=== PATIENT | female | born 1995 | race Caucasian/White ===

== ENCOUNTER → 2017-09-05 | Outpatient (CLI) | payer OTHER ==
[~2017-09-05] MED LIST: ACET325T96 PO; ALBU1AER9 INH; IBUP-103 PO; MONT1TAB3 PO
--- NOTE | 2017-09-05 12:38 | DIAGNOSTIC IMAGING REPORT ---
MRI OF THE BRAIN WITHOUT CONTRAST CLINICAL HISTORY: HEADACHES,RETINAL TEAR COMPARISON STUDY: 02/16/2016 FINDINGS: Sagittal T1, axial diffusion, proton density and T2 weighted axial, coronal FLAIR, and axial T1-weighted images were acquired. No intra or extra-axial mass lesions are visualized Axial diffusion-weighted images reveal no evidence of acute or subacute infarction. There is no evidence of ventricular dilatation. Proton density T2-weighted and FLAIR images reveal no significant intraparenchymal signal abnormalities. There are no abnormal flow voids. There is a small left maxillary sinus retention cyst. IMPRESSION: Normal MRI of the brain. Electronically signed by: Santos Lai M.D. 09/05/2017 12:36 PM Dictated Date/Time: 09/05/2017 12:35 PM
== END | disposition home or self-care (01) ==
LOC: C.MRI 11:39
PROVIDERS: ATTEND Family Medicine
DX: H93.19 Tinnitus, unspecified ear (principal); H33.309 Unspecified retinal break, unspecified eye; G44.89 Other headache syndrome

== ENCOUNTER → 2017-10-25 | Outpatient (CLI) | payer OTHER ==
[~2017-10-25] MED LIST changes: +ACET-1693 PO; -ACET325T96 PO
--- NOTE | 2017-10-25 17:21 | DIAGNOSTIC IMAGING REPORT ---
PELVIS/BILATERAL HIP 2 VIEWS CLINICAL HISTORY: THORATIC PAIN, RIGHT HIP AND GROIN PAIN pain COMPARISON STUDY: None FINDINGS: Normal pelvis and hips bilaterally. No evidence for acetabular protrusion. Cortical margins are intact. Sacral foramina are symmetric. Unremarkable sacroiliac joints. IMPRESSION: Normal study The above report was generated using voice recognition software. It may contain grammatical, syntax or spelling errors. Electronically signed by: Wilmer Roa M.D. 10/25/2017 5:20 PM Dictated Date/Time: 10/25/2017 5:19 PM
--- NOTE | 2017-10-25 17:24 | DIAGNOSTIC IMAGING REPORT ---
SCOLIOSIS 2 VIEW (AP LAT) CLINICAL HISTORY: THORATIC PAIN, RIGHT HIP AND GROIN PAIN pain COMPARISON STUDY: None FINDINGS: Mild thoracal lumbar scoliosis. Scoliosis of the thoracic region is 7 degrees. Scoliosis of the thoracolumbar junction is 7 degrees. IMPRESSION: Mild scoliosis of the thoracolumbar spine with angulations of 7 and 7 degrees respectively. The above report was generated using voice recognition software. It may contain grammatical, syntax or spelling errors. Electronically signed by: Wilmer Roa M.D. 10/25/2017 5:23 PM Dictated Date/Time: 10/25/2017 5:21 PM
== END | disposition home or self-care (01) ==
LOC: C.RAD 15:52
PROVIDERS: ATTEND Family Medicine
DX: M25.551 Pain in right hip (principal); R10.30 Lower abdominal pain, unspecified; M54.6 Pain in thoracic spine; M41.9 Scoliosis, unspecified

== ENCOUNTER 2024-04-11 12:43 | Inpatient (IN) ==
[2024-04-12] MEDS ORDERED: CALCIUM CARBONATE 500 MG CHEWABLE TAB PO PRN (08:18)
[2024-04-12] MEDS ORDERED: LIDOCAINE 1% LOCAL 20 ML VIAL INFIL PRN (08:18)
[2024-04-12 08:53] LABS: Hematocrit (blood only) 34.3 % (37.0-47.0); Hemoglobin 11.8 g/dl (12.0-16.0); Mean Corpuscular Hemoglobin 29.6 pg (25.0-34.0); Mean Corpuscular Hgb Conc 34.4 g/dL (32.0-36.0); Mean Corpuscular Volume 86.2 fL (80.0-100.0); Mean Platelet Volume 10.9 fL (9.4-12.4); Platelet Count 175 K/uL (130-400); RDW Coefficient of Variation 12.6 % (11.5-14.5); RDW Standard Deviation 39.5 fL (36.4-46.3); Red Blood Count 3.98 M/uL (4.20-5.40); White Blood Count 9.38 K/ul (4.8-10.8)
[2024-04-12] MEDS: miSOPROStoL 25 MCG TAB PV ONE ×3 (09:22→21:20)
--- NOTE | 2024-04-12 09:55 | History & Physical Report ---
Date of Service April 12, 2024 Assessment & Plan (1) Obesity affecting : (2) Rh negative status during : (3) Supervision of normal first : Plan 28 yo G1 at 41 4/7 wga presents for late term iol VSS - initial bp mild range but pt very nervous, normal repeat Fetus cat 1 Labor - discussed cytotec vs lockwood to start, risks and benefits of each. Cervix very high and difficult to reach due to head position. Pt desires to start w/ cytotec, discussed use. 25mcg vaginal cytotec placed GBS neg epidural prn Admission and Anticipated Discharge Date Admission Date: April 12, 2024 History of Present Illness Chief Complaint: iol Primary Care Provider: Riley Brice MD 28 yo G1 at 41 4/7 wga presents for late term iol. 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 denies hx stis Allergies Allergy/AdvReac Type Severity Reaction Status Date / Time No Known Drug Allergies Allergy Unknown Diarrhea Verified 04/12/24 08:00 dust Allergy Intermediate induces Uncoded 04/10/24 14:31 asthma Home Medications Medication Instructions Recorded Confirmed Type vits 75-iron 28 mg-folic pkg PO 07/10/23 04/10/24 History acid 800 mcg-omega3 440 mg oral pack (One Daily ) albuterol sulfate inhalation PRN 08/17/23 04/10/24 History cholecalciferol (vitamin D3) 50 50 mcg PO DAILY #30 caps 04/08/24 04/10/24 Rx mcg (2,000 unit) capsule Patient History Medical History History of chicken pox Chronic tonsillitis Moderate persistent asthma Anxiety and depression Asthma Surgical History History of wisdom tooth extraction History of tonsillectomy Family History Grandmother (Maternal) Breast cancer Aunt Breast cancer Family/Other Breast cancer Father Heart disease Other Anxiety Depression Diabetes Denies family history of Ovarian cancer Prostate cancer Lung cancer Colorectal cancer Social History (Updated 04/12/24 @ 07:59 by Hellen B Force, RN) Smoking Status: Never smoker Second Hand Exposure: No; Do You Dip or Chew Tobacco: No; Hx Alcohol Use: No Hx Substance Use: No Preferred Language: [place]an Communication Ability: Effective Visual Impairment: Limited Hearing Ability: Normal Acidizer Helper Required: No Beliefs That Will Affect Care: None marital status: marital status details: Nba Rojas (26) [phone] Current Living Situation: Spouse Current Living Situation Comment: lives with spouse, dog current occupational status: employed How many Children do You have: 0 Other Information That Helps Us Care for You: No other: [employer] Feels Safe at Home: Yes Safety Concerns: Feels Safe At This Time Childhood Exposure to Second-Hand Smoke: No Diet: regular caffeine: Yes (1 cup of coffee daily ) during the past year weight has: decreased > 10 lbs Dental Care, Regularly: Yes Physical Activity Frequency: 3-4 Times per Week Seatbelt Use: always Sunscreen Use: No Assistive Devices: None Physical Exam Genitourinary: OB Exam Abdomen: + vertex (confirmed by bsus) Manual OB Exam: + cervical dilation fingertip, + cervical effacement 50% and + station high OB Exam Monitor Tracing: + external FHT monitor used, + external uterine monitor used (none) and + category I (130/mod/+accel/-decel) Results & Data Vital Signs (Past 12 Hours) Vital Signs Temp Pulse Resp BP 04/12/24 09:02 88 129/86 04/12/24 08:01 98.8 F 20 04/12/24 07:54 81 150/90 H Laboratory Results OB Labs: Blood Type A Negative 08/22/23 Antibody Screen POSITIVE A 01/21/24 Hgb 11.4 g/dl (12.0-16.0) L 01/08/24 Hct 33.1 % (37.0-47.0) L 01/08/24 MCV 83.6 fL (80.0-100.0) 08/22/23 Plt Count 225 K/uL (130-400) 08/22/23 Rubella IgG Antibody Immune (Immune) 08/22/23 RPR Nonreactive (Nonreactive) 08/22/23 Hep Bs Antigen NON-REACTIVE (NON-REACTIVE) 08/22/23 Hepatitis C Ab (EIA) NON-REACTIVE (NON-REACTIVE) 08/22/23 HIV (1&2) Ag & Ab Conf NON-REACTIVE (NON-REACTIVE) 08/22/23 Glucose 1 Hr 50 gm 143 mg/dl (70-130) H 01/08/24 OB Optional Labs: Chlamydia trachomatis RNA Not Detected (NotDetected) 08/22/23 Neisseria gonorrhoeae RNA Not Detected (NotDetected) 08/22/23 Thyroid Stimulating Hormone (TSH) 2.369 uIu/ml (0.300-4.500) 07/10/23 Labs Reviewed: passed 28 week 2 hr gtt--[facility] low risk panorama--[facility] HOrizon 14 neg --[facility] gbs neg--[facility] Diagnostic Findings Posterior eccentric plac Coding Level of Care Code None Diagnoses Obesity affecting O99.210 Rh negative status during O26.899; Z67.91 Supervision of normal first Z34.00
--- NOTE | 2024-04-12 15:56 | Labor Progress Brief Note ---
Date of Service April 12, 2024 Subjective occ cramps but not painful Assessment & Plan (1) Obesity affecting : (2) Rh negative status during : (3) Supervision of normal first : Plan 28 yo G1 at 41 4/7 wga presents for late term iol VSS Fetus cat 1 Labor - s/p cytotec x 1, still very difficult to palpate cervix due to being high and behind head, attempted spec exam and very uncomfortable for pt so stopped. Discussed repeat cytotec to hopefully ripen cervix more and make it reachable for lockwood, cytotec placed after pt agreeable GBS neg epidural prn Admission and Anticipated Discharge Date Admission Date: April 12, 2024 Physical Exam Genitourinary: Manual OB Exam: + cervical dilation fingertip, + cervical effacement 50% and + station high OB Exam Monitor Tracing: + external FHT monitor used, + external uterine monitor used (q6) and + category I (120/mod/+accel/-decel) Results & Data Vital Signs (Past 12 Hours) Vital Signs Temp Pulse Resp BP 04/12/24 14:27 98.1 F 68 20 135/86 04/12/24 10:46 99.0 F 72 20 127/84 04/12/24 09:02 88 129/86 04/12/24 08:01 98.8 F 20 04/12/24 07:54 81 150/90 H Coding Level of Care Code None Diagnoses Obesity affecting O99.210 Rh negative status during O26.899; Z67.91 Supervision of normal first Z34.00
--- NOTE | 2024-04-12 21:28 | Labor Progress Brief Note ---
Date of Service April 12, 2024 Subjective occ cramps but not painful Assessment & Plan (1) Obesity affecting : (2) Rh negative status during : (3) Supervision of normal first : Plan 28 yo G1 at 41 4/7 wga presents for late term iol VSS Fetus cat 1 Labor - s/p cytotec x 2, still only fingertip and very high. Will try another cytotec, consider pit to see if will help if not progressed again GBS neg epidural prn Admission and Anticipated Discharge Date Admission Date: April 12, 2024 Physical Exam Genitourinary: Manual OB Exam: + cervical dilation fingertip, + cervical effacement 50% and + station high OB Exam Monitor Tracing: + external FHT monitor used, + external uterine monitor used (q6) and + category I (120/mod/+accel/-decel) Results & Data Vital Signs (Past 12 Hours) Vital Signs Temp Pulse Resp BP 04/12/24 19:16 18 04/12/24 19:16 98.4 F 18 04/12/24 19:15 76 135/83 04/12/24 14:27 98.1 F 68 20 135/86 04/12/24 10:46 99.0 F 72 20 127/84 Coding Level of Care Code None Diagnoses Obesity affecting O99.210 Rh negative status during O26.899; Z67.91 Supervision of normal first Z34.00
[2024-04-13] MEDS: LACTATED RINGER'S 1,000 ML IV PRN (02:08)
[2024-04-13] MEDS: OXYTOCIN 30 UNITS/NSS 30 UNITS/500 ML BAG IV PRN ×2 (02:17→17:40)
--- NOTE | 2024-04-13 02:17 | Labor Progress Brief Note ---
Date of Service April 13, 2024 Subjective ctx more painful Assessment & Plan (1) Obesity affecting : (2) Rh negative status during : (3) Supervision of normal first : Plan 28 yo G1 at 41 4/7 wga presents for late term iol VSS Fetus cat 1 Labor - s/p cytotec x 3, still fingertip and very high/difficult to reach. Discussed trying low dose pit to see if will help bring cervix forward pt agreeable GBS neg epidural prn Admission and Anticipated Discharge Date Admission Date: April 12, 2024 Physical Exam Genitourinary: Manual OB Exam: + cervical dilation fingertip, + cervical effacement 50% and + station high OB Exam Monitor Tracing: + external FHT monitor used, + external uterine monitor used (irreg) and + category I (120/mod/+accel/-decel) Results & Data Vital Signs (Past 12 Hours) Vital Signs Temp Pulse Resp BP 04/12/24 22:17 18 04/12/24 22:17 98.4 F 18 04/12/24 22:16 64 133/80 04/12/24 19:16 18 04/12/24 19:16 98.4 F 18 04/12/24 19:15 76 135/83 04/12/24 14:27 98.1 F 68 20 135/86 Coding Level of Care Code None Diagnoses Obesity affecting O99.210 Rh negative status during O26.899; Z67.91 Supervision of normal first Z34.00
[2024-04-13] MEDS: BUTORPHANOL TARTRATE 2 MG/ML VIAL IV PRN (03:22)
[2024-04-13] MEDS: LIDOCAINE 2%/EPINEPHRINE 1:200,000 20 ML PF ONE (05:35)
[2024-04-13] MEDS: BUPIVACAINE 0.25% PF 30 ML VIAL ONE (05:35)
[2024-04-13] MEDS: fentANYL 2 MCG/ML BUPIVacaine 0.125%-NSS 100ML BAG ONE ×2 (05:36→14:29)
[2024-04-13] MEDS: fentaNYL citrate PF 100 MCG/2 ML VIAL ONE (05:37)
[2024-04-13] MEDS: ePHEDrine sulfate 50 MG/ML AMP ONE (05:37)
[2024-04-13] MEDS: SODIUM CHLORIDE 0.9% PF INJ 10 ML VIAL ONE (05:38)
--- NOTE | 2024-04-13 05:50 | Anesthesiology Consultation ---
Date of Service April 13, 2024 Assessment & Plan Chart Review Chart Review: Acceptable Risk for Labor Epidural Consults Requested none History Height/Weight Height: 5 ft 6 in Weight: 122.47 kg Allergies Allergy/AdvReac Type Severity Reaction Status Date / Time house dust Allergy Intermediate dust Verified 04/13/24 03:17 induces asthma No Known Drug Allergies Allergy Unknown Diarrhea Verified 04/12/24 08:00 Medications Home Medications Medication Instructions Recorded Confirmed Last Taken vits 75-iron 28 mg-folic pkg PO 07/10/23 04/10/24 Unknown acid 800 mcg-omega3 440 mg oral pack (One Daily ) albuterol sulfate inhalation PRN 08/17/23 04/10/24 Unknown cholecalciferol (vitamin D3) 50 50 mcg PO DAILY #30 caps 04/08/24 04/10/24 Unknown mcg (2,000 unit) capsule Active Medications Generic Name Dose Route Start Last Admin Trade Name Freq PRN Reason Stop Dose Admin Butorphanol Tartrate 1 mg 04/13/24 03:14 04/13/24 03:22 Butorphanol Tartrate 2 Mg/Ml Vial IV 1 mg Q1H PRN Administration Pain Oxytocin 30 units in 500 mls @ 5 mls/hr 04/12/24 08:18 04/13/24 05:43 Pitocin 30 Units/Nss IV 04/14/24 08:17 0.3 units/hr .Q24H PRN 5 mls/hr Labor Induction/Augmentation Titration Protocol 0.3 UNITS/HR Lactated Ringer's 1,000 mls @ 125 mls/hr 04/12/24 08:18 04/13/24 04:45 Lr IV 04/14/24 08:17 125 mls/hr .Q8H PRN Administration L&D Protocol Protocol Past Medical History Medical History History of chicken pox Chronic tonsillitis Moderate persistent asthma Anxiety and depression Asthma Past Family History Family History Grandmother (Maternal) Breast cancer Aunt Breast cancer Family/Other Breast cancer Father Heart disease Other Anxiety Depression Diabetes Denies family history of Ovarian cancer Prostate cancer Lung cancer Colorectal cancer Past Surgical History Surgical History History of wisdom tooth extraction History of tonsillectomy Social History Smoking Status: Never smoker Do You Dip or Chew Tobacco: No Hx Alcohol Use: No Hx Substance Use: No Physical Exam Vital Signs Last Vital Signs Temp 36.7 C 04/13/24 02:21 Pulse 92 H 04/13/24 05:49 Resp 18 04/13/24 02:21 BP 138/70 04/13/24 05:49 Pulse Ox 98 04/13/24 05:45 Testing Laboratory Results 04/12/24 08:23 Blood Type A Negative 04/12/24 08:23 Antibody Screen NEGATIVE 04/12/24 08:23
--- NOTE | 2024-04-13 07:53 | Labor Progress Brief Note ---
Date of Service April 13, 2024 Subjective comfortable w/ epidural Assessment & Plan (1) Obesity affecting : (2) Rh negative status during : (3) Supervision of normal first : Plan 28 yo G1 at 41 4/7 wga presents for late term iol VSS Fetus cat 1 Labor - pit was started and pt received epidural. Shortly after, decels were noted so pitocin was shut off and just restarted after recovery. Discussed fol ey bulb placement now that cervix more anterior and pt comfortable, shortly after placement rom was noted and removed so will go up on pitocin. Pt desiring of continuing induction GBS neg epidural in place Admission and Anticipated Discharge Date Admission Date: April 12, 2024 Physical Exam Genitourinary: Manual OB Exam: + cervical dilation 1 cm, + cervical effacement 50% and + station -2 OB Exam Monitor Tracing: + external FHT monitor used, + external uterine monitor used (irreg) and + category I (140/mod/+accel/-decel) Sheridan bulb placed and shortly after amniotic fluid noted coming from tubing so removed Results & Data Vital Signs (Past 12 Hours) Vital Signs Temp Pulse Resp BP Pulse Ox 04/13/24 07:48 71 108/64 04/13/24 07:45 71 97 04/13/24 07:40 73 98 04/13/24 07:35 101 H 98 04/13/24 07:30 87 91 04/13/24 07:25 64 20 104/57 L 98 04/13/24 07:20 100 H 98 04/13/24 07:15 104 H 98 04/13/24 07:13 88 94 04/13/24 07:10 82 98 04/13/24 07:08 98.1 F 66 20 109/61 04/13/24 07:05 90 99 04/13/24 07:00 87 99 04/13/24 06:58 71 100/55 L 04/13/24 06:55 78 100 04/13/24 06:53 65 98/55 L 04/13/24 06:50 66 100 04/13/24 06:48 97.9 F 71 18 98/50 L 04/13/24 06:45 70 100 04/13/24 06:43 70 91/52 L 92 04/13/24 06:40 68 99 04/13/24 06:38 66 103/47 L 04/13/24 06:35 68 99 04/13/24 06:33 71 109/53 L 04/13/24 06:31 18 04/13/24 06:31 18 04/13/24 06:30 79 98 04/13/24 06:28 90 04/13/24 06:28 74 04/13/24 06:28 67 98/53 L 04/13/24 06:25 68 96/55 L 100 04/13/24 06:23 71 92 04/13/24 06:20 64 98 04/13/24 06:18 88 92 04/13/24 06:15 89 99 04/13/24 06:14 93 H 147/86 H 04/13/24 06:10 87 98 04/13/24 06:08 74 133/64 04/13/24 06:05 107 H 97 04/13/24 06:03 87 130/71 04/13/24 06:00 85 98 04/13/24 05:58 81 129/71 04/13/24 05:55 81 98 04/13/24 05:53 81 131/72 04/13/24 05:50 91 H 97 04/13/24 05:49 92 H 138/70 04/13/24 05:45 82 98 04/13/24 05:42 82 131/76 04/13/24 05:40 74 128/73 94 04/13/24 05:38 89 134/81 04/13/24 05:36 83 134/79 04/13/24 05:35 77 99 04/13/24 05:32 77 93 04/13/24 05:30 89 04/13/24 05:30 95 H 131/72 97 04/13/24 05:26 100 H 92 04/13/24 05:25 106 H 22 97 04/13/24 05:20 90 100 04/13/24 05:15 105 H 99 04/13/24 05:10 76 98 04/13/24 05:07 87 94 04/13/24 05:05 82 99 04/13/24 05:00 90 91 04/13/24 04:59 66 91 04/13/24 04:55 82 100 04/13/24 04:41 88 98 04/13/24 04:36 82 99 04/13/24 04:31 78 98 04/13/24 04:28 68 94 04/13/24 04:26 98 H 95 04/13/24 04:23 93 H 146/98 H 04/13/24 04:21 101 H 95 04/13/24 04:20 94 H 94 04/13/24 04:16 77 98 04/13/24 03:29 82 144/92 H 04/13/24 03:24 93 H 140/100 04/13/24 02:21 18 04/13/24 02:21 98.1 F 18 04/13/24 02:21 97.0 F L 74 18 142/89 H 04/12/24 22:17 18 04/12/24 22:17 98.4 F 18 04/12/24 22:16 64 133/80 Coding Level of Care Code None Diagnoses Obesity affecting O99.210 Rh negative status during O26.899; Z67.91 Supervision of normal first Z34.00
--- NOTE | 2024-04-13 12:34 | Communication Note ---
Date of Service: April 13, 2024 Late entry due to pt care. IUPC placed at 1022 at nursing request as patient was repositioned and unable to see ctx to continue going on pit. Still 1cm at that time so will continue to augment per iupc
[2024-04-13] MEDS ORDERED: LIDOCAINE 2% MPF LOCAL 5 ML VIAL EPI PRN (14:23)
[2024-04-13] MEDS ORDERED: ePHEDrine sulfate 50 MG/ML AMP IV PRN (14:23)
[2024-04-13] MEDS ORDERED: fentaNYL citrate PF 100 MCG/2 ML VIAL EPI PRN (14:23)
[2024-04-13] MEDS ORDERED: NALBUPHINE HCL INJ 10 MG/ML AMP IV PRN (14:23)
[2024-04-13] MEDS ORDERED: fentANYL 2 MCG/ML BUPIVacaine 0.125%-NSS 100ML BAG EPI PRN (14:23)
[2024-04-13] MEDS ORDERED: SODIUM CHLORIDE 0.9% PF INJ 10 ML VIAL EPI PRN (14:23)
[2024-04-13] MEDS ORDERED: ROPIVACAINE 0.5% PF 5 MG/ML 20 ML VIAL EPI PRN (14:23)
[2024-04-13] MEDS ORDERED: NALOXONE HCL 0.4 MG/1 ML VIAL/CARP IV PRN (14:23)
[2024-04-13] MEDS ORDERED: ONDANSETRON INJ 2 MG/ML 2 ML VIAL IV PRN (14:23)
[2024-04-13] MEDS ORDERED: BUPIVACAINE 0.25% PF 30 ML VIAL EPI PRN (14:23)
[2024-04-13] MEDS ORDERED: diphenhydrAMINE 50 MG/ML VIAL IV PRN (14:23)
[2024-04-13] MEDS ORDERED: NALOXONE HCL 1 MG in SODIUM CHLORIDE 0.9% 1,000 ML IV PRN (14:23)
--- NOTE | 2024-04-13 14:38 | Labor Progress Brief Note ---
Date of Service April 13, 2024 Subjective comfortable w/ epidural Assessment & Plan (1) Obesity affecting : (2) Rh negative status during : (3) Supervision of normal first : Plan 28 yo G1 at 41 4/7 wga presents for late term iol VSS Fetus cat 1 Labor - iupc was placed earlier to help guide pit, currently at 17 and progress noted. MVUs good, pt feels good after nap. Continue induction GBS neg epidural in place Admission and Anticipated Discharge Date Admission Date: April 12, 2024 Physical Exam Genitourinary: Manual OB Exam: + cervical dilation 3 cm, + cervical effacement 70% and + station -2 OB Exam Monitor Tracing: + external FHT monitor used, + intra-uterine pressure catheter used (q4-5, mvus adequate) and + category I (120/mod/+accel/-decel) Results & Data Vital Signs (Past 12 Hours) Vital Signs Temp Pulse Resp BP Pulse Ox 04/13/24 14:35 81 99 04/13/24 14:30 71 99 04/13/24 14:25 69 99 04/13/24 14:20 74 99 04/13/24 14:18 70 129/74 04/13/24 14:15 86 99 04/13/24 14:10 75 99 04/13/24 14:05 82 99 04/13/24 14:00 77 98 04/13/24 13:55 91 H 98 04/13/24 13:50 76 99 04/13/24 13:48 76 124/76 04/13/24 13:45 83 99 04/13/24 13:40 84 100 04/13/24 13:35 101 H 99 04/13/24 13:30 78 99 04/13/24 13:25 79 98 04/13/24 13:20 84 99 04/13/24 13:18 83 130/78 04/13/24 13:15 88 98 04/13/24 13:10 70 99 04/13/24 13:05 85 99 04/13/24 13:00 76 98 04/13/24 12:55 70 99 04/13/24 12:50 87 100 04/13/24 12:49 98.8 F 85 18 126/74 04/13/24 12:45 76 99 04/13/24 12:40 90 97 04/13/24 12:35 80 98 04/13/24 12:30 84 98 04/13/24 12:25 73 98 04/13/24 12:20 90 100 04/13/24 12:18 83 125/77 04/13/24 12:15 91 H 99 04/13/24 12:10 74 99 04/13/24 12:05 80 99 04/13/24 12:00 84 97 04/13/24 11:55 88 100 04/13/24 11:50 86 99 04/13/24 11:48 85 130/74 04/13/24 11:45 91 H 98 04/13/24 11:40 88 100 04/13/24 11:35 82 98 04/13/24 11:30 75 97 04/13/24 11:25 97 H 98 04/13/24 11:20 76 98 04/13/24 11:19 86 112/65 04/13/24 11:15 74 97 04/13/24 11:10 72 96 04/13/24 11:05 73 96 04/13/24 11:00 72 96 04/13/24 10:55 98.4 F 68 20 97 04/13/24 10:50 73 112/65 97 04/13/24 10:45 78 97 04/13/24 10:40 80 100 04/13/24 10:35 73 97 04/13/24 10:30 74 98 04/13/24 10:25 82 100 04/13/24 10:20 76 99 04/13/24 10:18 72 130/81 04/13/24 10:15 75 100 04/13/24 10:13 88 129/78 04/13/24 10:10 87 100 04/13/24 10:05 91 H 99 04/13/24 10:00 85 97 04/13/24 09:55 90 99 04/13/24 09:50 82 99 04/13/24 09:48 81 120/79 04/13/24 09:45 87 100 04/13/24 09:40 72 100 04/13/24 09:35 101 H 97 04/13/24 09:34 92 H 91 04/13/24 09:30 76 100 04/13/24 09:25 75 97 04/13/24 09:20 77 99 04/13/24 09:19 74 118/71 04/13/24 09:15 78 99 04/13/24 09:13 18 04/13/24 09:13 98.1 F 18 04/13/24 09:10 93 H 100 04/13/24 09:07 99 H 94 04/13/24 09:05 78 98 04/13/24 09:00 76 99 04/13/24 08:55 71 99 04/13/24 08:50 81 99 04/13/24 08:48 75 20 118/69 04/13/24 08:45 74 99 04/13/24 08:40 79 99 04/13/24 08:35 67 98 04/13/24 08:30 64 99 04/13/24 08:25 69 99 04/13/24 08:20 20 04/13/24 08:20 20 04/13/24 08:20 75 04/13/24 08:20 74 113/70 99 04/13/24 08:15 72 98 04/13/24 08:10 72 99 04/13/24 08:05 73 99 04/13/24 08:00 67 98 04/13/24 07:55 65 98 04/13/24 07:50 67 97 04/13/24 07:48 71 108/64 04/13/24 07:45 71 97 04/13/24 07:40 73 98 04/13/24 07:35 101 H 98 04/13/24 07:30 87 91 04/13/24 07:25 64 20 104/57 L 98 04/13/24 07:20 100 H 98 04/13/24 07:15 104 H 98 04/13/24 07:13 88 94 04/13/24 07:10 82 98 04/13/24 07:08 98.1 F 66 20 109/61 04/13/24 07:05 90 99 04/13/24 07:00 87 99 04/13/24 06:58 71 100/55 L 04/13/24 06:55 78 100 04/13/24 06:53 65 98/55 L 04/13/24 06:50 66 100 04/13/24 06:48 97.9 F 71 18 98/50 L 04/13/24 06:45 70 100 04/13/24 06:43 70 91/52 L 92 04/13/24 06:40 68 99 04/13/24 06:38 66 103/47 L 04/13/24 06:35 68 99 04/13/24 06:33 71 109/53 L 04/13/24 06:31 18 04/13/24 06:31 18 04/13/24 06:30 79 98 04/13/24 06:28 90 04/13/24 06:28 74 04/13/24 06:28 67 98/53 L 04/13/24 06:25 68 96/55 L 100 04/13/24 06:23 71 92 04/13/24 06:20 64 98 04/13/24 06:18 88 92 04/13/24 06:15 89 99 04/13/24 06:14 93 H 147/86 H 04/13/24 06:10 87 98 04/13/24 06:08 74 133/64 04/13/24 06:05 107 H 97 04/13/24 06:03 87 130/71 04/13/24 06:00 85 98 04/13/24 05:58 81 129/71 04/13/24 05:55 81 98 04/13/24 05:53 81 131/72 04/13/24 05:50 91 H 97 04/13/24 05:49 92 H 138/70 04/13/24 05:45 82 98 04/13/24 05:42 82 131/76 04/13/24 05:40 74 128/73 94 04/13/24 05:38 89 134/81 04/13/24 05:36 83 134/79 04/13/24 05:35 77 99 04/13/24 05:32 77 93 04/13/24 05:30 89 04/13/24 05:30 95 H 131/72 97 04/13/24 05:26 100 H 92 04/13/24 05:25 106 H 22 97 04/13/24 05:20 90 100 04/13/24 05:15 105 H 99 04/13/24 05:10 76 98 04/13/24 05:07 87 94 04/13/24 05:05 82 99 04/13/24 05:00 90 91 04/13/24 04:59 66 91 04/13/24 04:55 82 100 04/13/24 04:41 88 98 04/13/24 04:36 82 99 04/13/24 04:31 78 98 04/13/24 04:28 68 94 04/13/24 04:26 98 H 95 04/13/24 04:23 93 H 146/98 H 04/13/24 04:21 101 H 95 04/13/24 04:20 94 H 94 04/13/24 04:16 77 98 04/13/24 03:29 82 144/92 H 04/13/24 03:24 93 H 140/100 Coding Level of Care Code None Diagnoses Obesity affecting O99.210 Rh negative status during O26.899; Z67.91 Supervision of normal first Z34.00
--- NOTE | 2024-04-13 17:50 | Delivery Summary ---
Vaginal Delivery Summary Date of Service April 13, 2024 Vaginal Delivery Summary (bilateral sulcal) PREOPERATIVE DIAGNOSIS: 1. Single intrauterine at 41 5/7 wga 2. Late term induction of labor POSTOPERATIVE DIAGNOSIS: 1. Single intrauterine at 41 5/7 wga 2. Late term induction of labor 3. Delivered PROCEDURE: 1. Normal spontaneous vaginal delivery. SURGEON: Ronna Valencia MD ANESTHESIA: Epidural. QUANTITATIVE BLOOD LOSS: 543 mL (majority of QBL from lacerations) FLUIDS: Continuous LR. URINE OUTPUT: None. COMPLICATIONS: None. CONDITION: Stable. INDICATIONS: 28 yo G1 at 41 5/7 presented one day ago for late term induction of labor. Cervix was unable to be reached for lockwood bulb placement and so induction was begun with cytotec x 3. Pitocin was then started and epidural was given for pain control. IUPC placed for aid in pitocin titration. She progressed to complete and desired to push FINDINGS: A viable female , weight pending with Apgars of 8 and 9 at 1 and 5 minutes respectively. SPECIMEN: Cord blood OPERATIVE REPORT: The patient progressed to 10 cm, 100% effaced and +2 station, pushed over intact perineum with anesthesia to deliver a viable female infant, weight and Apgars as above. Head of delivered in CHING position. No nuchal cord was present. Body and shoulders were delivered without difficulty. was delivered to maternal abdomen and nursing staff. Delayed cord clamping was performed for 60 seconds. Cord was clamped and cut. Cord blood was obtained. Placenta delivered spontaneously intact with 3-vessel cord. IV oxytocin and fundal massage were given for excellent hemostasis. Vagina, cervix, perineum, and placenta were inspected. Bilateral sulcal lacerations were repaired using 3- 0 vicryl. There was an area of continued ooze from suture line and so pressure and bari were applied. There was then excellent hemostasis. Sponge and needle counts correct x2. No sponges were left behind. Mother and stable in immediate period. [facility] [place] Charge Vaginal Delivery Codes: 52003 global code for the antepartum, delivery, and post- Delivery Type Details: (bilateral sulcal)
[2024-04-13] MEDS ORDERED: HYDROCORTISONE ACETATE 25 MG SUPP PR PRN (17:54)
[2024-04-13] MEDS ORDERED: bisacodyL 10 MG SUPP PR PRN (17:54)
[2024-04-13] MEDS ORDERED: OXYTOCIN 30 UNITS/NSS 30 UNITS/500 ML BAG IV PRN (17:54)
--- NOTE | 2024-04-13 17:56 | Anesthesia Procedure Note ---
Date of Service April 13, 2024 Anesthesia Post Epidural Note Vital Signs Vital Signs: Temp Pulse Resp BP Pulse Ox 98.1 F 102 H 20 138/65 94 04/13/24 16:47 04/13/24 17:49 04/13/24 16:47 04/13/24 17:49 04/13/24 17:10 Pain Intensity Abdomen: Pain Intensity: 0 Notes Mental Status: alert / awake / arousable and participated in evaluation Nausea / Vomiting: adequately controlled Pain: adequately controlled Airway Patency, RR, SpO2: stable & adequate BP & HR: stable & adequate Hydration State: stable & adequate Neuraxial Anesthesia: was administered and sensory block is resolving Anesthetic Complications: no major complications apparent and Pt Satisfied with anesthetic care Epidural: Removed without complications and With tip intact
[2024-04-13] MEDS: fentaNYL citrate PF 100 MCG/2 ML VIAL EPI STA (18:55)
[2024-04-13] MEDS: DIPHTHER/TETAN/PERTUS Vaccine (Tdap, Adol/Adult) 0.5mL IM ONE (18:55)
[2024-04-13] MEDS: LIDOCAINE 2%/EPINEPHRINE 1:200,000 20 ML PF EPI STA (18:55)
[2024-04-13] MEDS: SODIUM CHLORIDE 0.9% PF INJ 10 ML VIAL EPI STA (18:55)
[2024-04-13] MEDS: BUPIVACAINE 0.25% PF 30 ML VIAL EPI STA (18:56)
[2024-04-13] MEDS: IBUPROFEN 600 MG TAB PO PRN (19:26)
[2024-04-13] MEDS: BENZOCAINE 20% SPRY 85 APPLN/85 GM CAN EXT PRN (20:50)
[2024-04-13] MEDS: DOCUSATE SODIUM 100 MG CAP PO SCH (21:11)
--- NOTE | 2024-04-14 05:36 | Obstetrical Progress Note ---
Date of Service April 14, 2024 Assessment & Plan (1) Encounter for care and examination after delivery: (2) Rh negative status during : (3) Obesity affecting : (4) Urinary retention: Plan Pt is 28 yo post- day 1 s/p at 39w2d. complicated by obesity and Rh negative. Rhogam was given 01-21-24. Pt has been unable to void without assist from straight cath. Encourage ambulation and breast feeding Motrin or Tylenol for pain control Monitor vitals and Hgb Urinary retention requiring Lockwood catheter. Upon discharge, pt to follow up with Dr. Valencia in 6 weeks Admission and Anticipated Discharge Date Admission Date: April 12, 2024 Supervising Physician Co-Signing Physician Notes Resident Physician Supervision Note: I interviewed and examined the patient. Discussed with Dr. Clark and agree with findings and plan as documented in the note. Any exceptions or clarifications are listed here: Feeling well. Had to be straight cath x 2 overnight and now dtv again, will need lockwood if still unable to void. Continue routine care otherwise Documented By: Ronna Valencia MD Subjective Pt is 28 yo post- day 1 s/p at 39w2d. complicated by obesity and Rh negative. Ambulation:In room Voiding:Has been unable to void independently since delivery Passing gas: yes BM: no Diet tolerance:regular diet Lochia:bloody, no clots Feeding type: breast Current pain level: 3-4 /10 improved with ibuprofen Resting comfortably this morning in NAD. Denies BERNARD, CP, SOB, N/V/D, LE pain/swelling. Review of Systems Review of Systems: As per HPI Physical Exam Constitutional: WD/WN, vitals as above Respiratory: normal respiratory effort, lungs clear to auscultation Cardiovascular: RRR, no murmur, no edema Gastrointestinal (Abdomen): normal bowel sounds, soft, nontender, no hepatosplenomegaly Uterine fundus firm and at level of umbilicus Neurologic: PERRL, EOMI, accommodation nl, no face palsy, no dysarthria Moving all 4 extremities on command Psychiatric: A+Ox3, euthymic affect Results & Data Vital Signs (Past 12 Hours) Vital Signs Temp Pulse Pulse Resp BP BP Pulse Ox 04/14/24 02:53 36.5 C 70 18 122/81 99 04/13/24 23:31 36.6 C 77 18 108/72 98 04/13/24 20:15 36.6 C 101 H 18 123/83 100 04/13/24 19:49 113 H 126/71 04/13/24 19:18 91 H 124/76 04/13/24 19:10 18 04/13/24 19:10 36.6 C 18 04/13/24 18:48 117 H 125/66 04/13/24 18:25 20 04/13/24 18:25 109 H 117/64 04/13/24 18:10 20 04/13/24 17:49 102 H 138/65 O2 Del Method 04/14/24 02:53 Room Air 04/13/24 23:31 Room Air 04/13/24 20:15 Room Air 04/13/24 19:49 04/13/24 19:18 04/13/24 19:10 04/13/24 19:10 04/13/24 18:48 04/13/24 18:25 04/13/24 18:25 04/13/24 18:10 04/13/24 17:49 Resident Activity Tracking Resident Involvement: Resident Care Provided Care Provided: Adult Hospital Medicine
[2024-04-14] MEDS: PRENATAL VITAMIN 1 TAB PO SCH (10:06)
[2024-04-14] MEDS: FERROUS SULFATE 325 MG TAB PO SCH (10:07)
[2024-04-14] MEDS: LIDOCAINE 2% JELLY 5 ML TUBE EXT ONE (14:12)
[2024-04-14] MEDS: ACETAMINOPHEN 325 MG TAB PO PRN (16:10)
[2024-04-14] MEDS: bisacodyL 5 MG TABEC PO SCH (20:45)
[2024-04-15 00:54] VITALS: RESP 18; TEMP 97.7
--- NOTE | 2024-04-15 05:47 | Obstetrical Progress Note ---
Date of Service April 15, 2024 Assessment & Plan (1) Encounter for care and examination after delivery: (2) Rh negative status during : (3) Obesity affecting : (4) Urinary retention: Plan Pt is 28 yo post- day 2 s/p at 39w2d. complicated by obesity and Rh negative. Rhogam was given 24. Pt has been unable to void without assist from straight cath. Encourage ambulation and breast feeding Motrin or Tylenol for pain control Monitor vitals Voiding trial with removal of Lockwood catheter. If unable to void independently, pt with D/C with Lockwood and return to OB clinic in 2 days. If voiding trial is successful, pt to follow up with Dr. Valencia in 6 weeks Discharge home today Admission and Anticipated Discharge Date Admission Date: April 12, 2024 Supervising Physician Co-Signing Physician Notes Resident Physician Supervision Note: I interviewed and examined the patient. Discussed with the resident doctor and agree with findings and plan as documented in the note. Any exceptions or clarifications are listed here: TOV this AM. If unable to void by 1pm, place lockwood/leg bag and will have outpatient TOV in a few days. Documented By: Lucy Larios MD, FACOG Subjective Pt is 28 yo post- day 2 s/p at 39w2d. complicated by obesity and Rh negative. Ambulation:In room Voiding:Has been unable to void independently since delivery, continues with Lockwood catheter Passing gas: yes BM: small BM on 04/13 Diet tolerance:regular diet Lochia:bloody, small clots Feeding type: breast Current pain level: 3-5 /10 improved with ibuprofen and tylenol Resting comfortably this morning in NAD. Denies BERNARD, CP, SOB, N/V/D, LE pain/swelling. Review of Systems Review of Systems: As per HPI Physical Exam Constitutional: WD/WN, vitals as above Respiratory: normal respiratory effort, lungs clear to auscultation Cardiovascular: RRR, no murmur, no edema Gastrointestinal (Abdomen): normal bowel sounds, soft, nontender, no hepatosplenomegaly Uterine fundus firm and 1-2 cm below umbilicus Neurologic: PERRL, EOMI, accommodation nl, no face palsy, no dysarthria Psychiatric: A+Ox3, euthymic affect Results & Data Vital Signs (Past 12 Hours) Vital Signs Temp Pulse Resp BP Pulse Ox O2 Del Method 04/15/24 00:05 36.5 C 82 18 129/80 99 Room Air Resident Activity Tracking Resident Involvement: Resident Care Provided Care Provided: Adult Hospital Medicine
[2024-04-15 08:21] VITALS: BP 123/82; PULSE 80; O2SAT 97
== END 2024-04-15 18:48 | disposition home or self-care (01) | DRG 806 ==
LOC: 4S1 04-12 07:37 → 4E2 04-13 20:17

== ENCOUNTER 2024-04-18 04:31 | Inpatient (IN) ==
[2024-04-18] MEDS: KETOROLAC TROMETHAMINE 15 MG/ML VIAL IV ONE (05:40)
[2024-04-18] MEDS: diphenhydrAMINE 50 MG/ML VIAL IV STA (05:41)
[2024-04-18] MEDS: SODIUM CHLORIDE 0.9% 500 ML IV ONE (05:42)
[2024-04-18] MEDS: PROCHLORPERAZINE 1 ML IV ONE (05:42)
[2024-04-18] MEDS: MAGNESIUM SULFATE / D5W 1 GM/100 ML BAG IV ONE (06:01)
[2024-04-18 06:08] LABS: Albumin Globulin Ratio 1.4 (0.9-2); Albumin Level 3.3 gm/dl (3.4-5.0); BUN Creatinine Ratio 11.5 (10-20); Bilirubin,Total 0.3 mg/dl (0.2-1.0); Calcium 8.3 mg/dl (8.6-10.3); Creatinine Clr Calc Pharmacy 180.9 ml/min; Est GFR (Non-African American) 121.7 ml/min; Globulin 2.4 gm/dl (2.5-4.0); Magnesium 1.9 mg/dl (1.7-2.4); Potassium 3.8 mmol/L (3.5-5.1); Total Protein 5.7 gm/dl (6.0-8.3); Uric Acid 4.7 mg/dl (2.6-7.2)
[2024-04-18] MEDS: SODIUM CHLORIDE 0.9% 1,000 ML IV SCH (06:09)
[2024-04-18 06:11] LABS: Appearance Urine Clear (Clear); Bacteria Urine Automated 1+ (None Seen); Bilirubin Urine Negative (Negative); Blood Urine 3+ (Negative); Cast Urine Automated 0-2 /lpf (0-2); Color Urine Yellow; Epithelial Cell Urine Auto 0-2 /hpf (0-2); Glucose Urine UA Negative (Negative); Ketones Urine Negative (Negative); Leukocyte Esterase Urine 2+ (Negative); Nitrite Urine Negative (Negative); Protein Urine Negative (Negative); RBC Urine Automated 0-2 /hpf (0-2); Specific Gravity Urine 1.004 (1.000-1.030); Urobilinogen Urine Negative (Negative); pH Urine 6.5 (4.5-7.5)
[2024-04-18 06:15] LABS: Troponin I High Sensitivity 3.3 pg/ml (0-14)
[2024-04-18 06:23] LABS: Thyroid Stimulating Hormone 4.129 uIu/ml (0.300-4.500)
--- NOTE | 2024-04-18 06:34 | Emergency Department Note ---
Impression & Plan Headache, hypertension ED Provider Note NAME: NAVIN MEDRANO AGE: 28 SEX: Female INFORMANT: Patient ED PROVIDER(S): Yeison Veloz MD CHIEF COMPLAINT: Headache PLAN: Disposition: Admitted Outpatient prescription management: none Referral: None MEDICAL DECISION MAKING: Patient presented because of headache complaints. She was hypertensive which was unusual for her by EMR review. Patient also noticed increased swelling. She had a nonfocal neurologic examination. Head CT imaging did not reveal any acute findings on my evaluation. Radiology read pending. Her CBC and chemistry panels were unremarkable. Patient has no proteinuria. Patient was hydrated. She was given IV Toradol, magnesium, Compazine, and Benadryl. She has had history of migraines but notes a positional component to this episode. She did have an epidural for her delivery. On reassessment patient's vital signs improved and hypertension resolved. Unfortunately hypertension came back. Patient still had some positional component to her headache. Consultation was made with [facility]. Discussed the case with Dr. Pascal. Given the patient's return of her hypertension up to 140/102 we discussed initiation of a magnesium infusion protocol. This was ordered by me. The patient will be admitted to the OB service. She stated that OB will consult with anesthesia for evaluation due to the possible positional component of the headache. Care/management discussed with: [facility] on-call Level of care consideration(s): After review of the information above and other included data, I feel the patient requires escalation of care to admission Triage Nursing notes: reviewed and agree them. Vital Signs: reviewed and remarkable for hypertension Additional History obtained from: Patient significant other. He does note the patient has had visible increased edema although it has been fluctuating. Chronic Medical/Social Conditions affecting care: none Prior/ Outside/ External records reviewed: none Differential Diagnosis: -induced hypertension, hypertension, preeclampsia, eclampsia, spinal headache, migraine headache, meningitis, sinusitis, CO exposure, ICH, SAH, infection, tumor, headache, sinus thrombosis, arterial dissection, as well as other pathologies. Diagnostics, independently interpreted by me: ECG: Twelve-lead ECG reveals a normal sinus rhythm at [address] elevation or depression. No PACs or PVCs. Cardiac Monitoring: Cardiac monitoring ordered by me: The patient was placed on continuous cardiac monitoring and observed. It revealed a normal sinus rhythm at 68 beats per minute without ectopy or evidence of dysrhythmia. Medical decision rules: none Imaging studies: Chest x-ray. Findings: A chest x-ray was performed and revealed no pneumothorax, effusion, infiltrate, pulmonary edema, free air under the diaphragm, or wide mediastinum. Impression: No acute disease. Head CT: A noncontrast CT scan of the head was performed and was negative for tumor, fracture, intracranial hemorrhage, or other acute pathology. HPI: 28 year old Female arrives for evaluation of headache. This started over the last several days and is worsening. The patient also notes the following associated symptoms, peripheral edema. The patient has used Tylenol for relieving factors. Current pain is rated as 4/10. Patient called on-call [facility] and was directed to the ER for evaluation. Patient notes no history of hypertension. She does have a history of migraines but this feels different. She notes that the pain is more pronounced when standing up and does feel better but does not go away with laying down. Pt denies LOC, fevers, chills, diaphoresis, visual changes, neck pain, chest pain, breathing difficulties, nausea, vomiting, abdominal pain, back pain, melena, hematochezia, urinary symptoms, numbness, weakness, lymphadenopathy, rash, or other complaints.. PAST MEDICAL HISTORY: See Below, Rh-, migraine PAST SURGICAL HISTORY: See Below, SOCIAL HISTORY: See Below, non-smoker HOME MEDICATIONS: See Below ALLERGIES: See Below VITALS: See Below PHYSICAL EXAMINATION: GENERAL: Awake, alert, well appearing, no distress HENT: Normocephalic, atraumatic. TM's normal. Oropharynx unremarkable. EYES: PERRL. EOMI. Normal conjunctiva. Sclera non-icteric. NECK: Supple. Normal inspection. Non-tender. No nuchal rigidity. FROM. No bruit. RESPIRATORY: Breath sounds equal. No wheezes. No rhonchi. Normal respiratory effort. CARDIAC: Normal rate. Regular rhythm. No murmurs. No rubs. No JVD. GI: Soft, non distended. No tenderness to palpation. No rebound or guarding. No masses. RECTAL: Deferred. MUSCULOSKELETAL: Unremarkable. 1+ edema. No discoloration. Gross motor strength symmetric. NEURO: Cranial nerves 2-12 grossly intact. Normal sensorium. No sensory or motor deficits noted. Speech normal. No pronator drift. Normal rapid alternating movements. Gait normal. Negative rhomberg. SKIN: No rash or jaundice noted. LYMPH: No adenopathy. PROCEDURES: none CRITICAL CARE: none OBSERVATION NOTE: none Past Med/Surg History Problem List (Updated 04/18/24 @ 06:34 by Yeison Veloz MD) hypertension (Acute) Headache (Acute) Urinary retention Encounter for care and examination after delivery Sinusitis Intrauterine related hip pain in second trimester, antepartum Rh negative status during Obesity affecting Choroidal neovascularization Supervision of normal first Encounter for general adult medical examination without abnormal findings Migraine headache without aura Vitamin D deficiency Fatigue Synovitis Allergic rhinitis Asthma Head injury (Acute) Central serous retinopathy (Acute) Medical History History of chicken pox Chronic tonsillitis Moderate persistent asthma Anxiety and depression Asthma Surgical History History of wisdom tooth extraction History of tonsillectomy Family History Grandmother (Maternal) Breast cancer Aunt Breast cancer Family/Other Breast cancer Father Heart disease Other Anxiety Depression Diabetes Denies family history of Ovarian cancer Prostate cancer Lung cancer Colorectal cancer Social History (Updated 04/12/24 @ 07:59 by Hellen Grant RN) Smoking Status: Never smoker Second Hand Exposure: No; Do You Dip or Chew Tobacco: No; Hx Alcohol Use: No Hx Substance Use: No Preferred Language: Slovak Communication Ability: Effective Visual Impairment: Limited Hearing Ability: Normal It Risk Advisor Required: No Beliefs That Will Affect Care: None marital status: marital status details: Nba Medrano (26) [phone] Current Living Situation: Spouse Current Living Situation Comment: lives with spouse, dog current occupational status: employed How many Children do You have: 0 other: [employer] Feels Safe at Home: Yes Childhood Exposure to Second-Hand Smoke: No Diet: regular caffeine: Yes (1 cup of coffee daily ) during the past year weight has: decreased > 10 lbs Dental Care, Regularly: Yes Physical Activity Frequency: 3-4 Times per Week Seatbelt Use: always Sunscreen Use: No Assistive Devices: None Allergies Allergies Allergy/AdvReac Type Severity Reaction Status Date / Time house dust Allergy Intermediate dust Verified 04/13/24 03:17 induces asthma No Known Drug Allergies Allergy Unknown Diarrhea Verified 04/12/24 08:00 Home Meds Home Medications Medication Instructions Recorded Confirmed vits 75-iron 28 mg-folic See Protocol PO DAILY 07/10/23 04/13/24 acid 800 mcg-omega3 440 mg oral pack (One Daily ) albuterol 90 mcg/actuation aerosol mcg inhalation 04/13/24 inhaler Previous Rx's Medication Instructions Recorded cholecalciferol (vitamin D3) 50 50 mcg PO DAILY #30 caps 04/08/24 mcg (2,000 unit) capsule Results & Data (ED) Vital Signs Vital Signs - 24 hr 04/18/24 04:35 04/18/24 04:54 04/18/24 04:54 Temperature 36.6 C Temperature Source Oral Pulse Rate 82 Pulse Rate [Apical] 74 Pulse Rhythm [Apical] Pulse Strength [Apical] Respiratory Rate 18 16 Respiratory Effort / Characteristics Non-Labored Spontaneous Respiratory Depth Normal Respiratory Pattern Blood Pressure 159/96 H Blood Pressure [Right Arm] 144/86 H Blood Pressure Mean 117 Blood Pressure Mean [Right Arm] 105 Pulse Oximetry 99 99 96 Oxygen Delivery Method Room Air Room Air Sepsis Recent Fever Within 48 Hours No Sepsis New/Unexplained Change in Mental Status No Sepsis Action Taken by Nursing No Action Required 04/18/24 04:57 04/18/24 06:00 04/18/24 07:58 Temperature Temperature Source Pulse Rate 80 Pulse Rate [Apical] 68 78 Pulse Rhythm [Apical] Regular Pulse Strength [Apical] Normal Respiratory Rate 16 18 Respiratory Effort / Characteristics Non-Labored Non-Labored Spontaneous Respiratory Depth Normal Normal Respiratory Pattern Regular Blood Pressure Blood Pressure [Right Arm] 121/84 146/102 H Blood Pressure Mean Blood Pressure Mean [Right Arm] 96 116 Pulse Oximetry 97 100 Oxygen Delivery Method Room Air Room Air Sepsis Recent Fever Within 48 Hours Sepsis New/Unexplained Change in Mental Status Sepsis Action Taken by Nursing Laboratory Data 04/18/24 07:11 04/18/24 05:30 Lab Results 04/18/24 04/18/24 04/18/24 Range/Units 05:25 05:30 07:11 WBC Cancelled 7.67 RBC Cancelled 2.88 L Hgb Cancelled 8.6 L Hct Cancelled 25.0 L MCV Cancelled 86.8 MCH Cancelled 29.9 MCHC Cancelled 34.4 RDW Std Deviation Cancelled 39.8 RDW Coeff of [place] Cancelled 12.7 Plt Count Cancelled 180 MPV Cancelled 10.4 Immature Gran % (Auto) Cancelled 1.2 Neut % (Auto) Cancelled 65.4 Lymph % (Auto) Cancelled 24.9 Mchenry % (Auto) Cancelled 6.3 Eos % (Auto) Cancelled 1.8 Baso % (Auto) Cancelled 0.4 Neut # (Auto) Cancelled 5.02 Lymph # (Auto) Cancelled 1.91 Mchenry # (Auto) Cancelled 0.48 Eos # (Auto) Cancelled 0.14 Baso # (Auto) Cancelled 0.03 Immature Gran # (Auto) Cancelled 0.09 Absolute Nucleated RBC Cancelled Nucleated RBC % (auto) Cancelled Neutrophils % (Manual) Cancelled Band Neutrophils % Cancelled Lymphocytes % (Manual) Cancelled Prolymphocyte % Cancelled Reactive Lymphs % (Man) Cancelled Monocytes % (Manual) Cancelled Eosinophils % (Manual) Cancelled Basophils % (Manual) Cancelled Metamyelocytes % (Man) Cancelled Myelocytes % (Man) Cancelled Promyelocytes % (Man) Cancelled Blast Cells % (Manual) Cancelled Plasma Cell % (Manual) Cancelled Other Cells % Cancelled Nucleated RBC % Cancelled Neutrophils # (Manual) Cancelled Band Neutrophils # Cancelled Total Absolute Neuts Cancelled Lymphocytes # (Manual) Cancelled Prolymphocyte # Cancelled Reactive Lymphs # Cancelled Total Abs Lymphocytes Cancelled Monocytes # (Manual) Cancelled Eosinophils # (Manual) Cancelled Basophils # (Manual) Cancelled Metamyelocytes # (Man) Cancelled Myelocytes # (Manual) Cancelled Promyelocytes # (Man) Cancelled Blast Cells # (Man) Cancelled Plasma Cell # (Manual) Cancelled Other Cells # Cancelled Nucleated RBCs # (Man) Cancelled Hypersegmented Neuts Cancelled Hyposegmented Neuts Cancelled Hypogranular Neuts Cancelled Large Granular Lymphs Cancelled # Lrg Granular Lymphs Cancelled Hairy Cells Cancelled Smudge Cells Cancelled Toxic Granulation Cancelled Toxic Vacuolation Cancelled Dohle Bodies Cancelled Merrill Rods Cancelled Platelet Estimate Cancelled Hypogranular Platelets Cancelled Giant Platelets Cancelled Platelet Satelliting Cancelled RBC Morphology Cancelled Polychromasia Cancelled Hypochromasia Cancelled Poikilocytosis Cancelled Basophilic Stippling Cancelled Anisocytosis Cancelled Microcytosis Cancelled Macrocytosis Cancelled Spherocytes Cancelled Pappenheimer Bodies Cancelled Sickle Cells Cancelled Target Cells Cancelled Tear Drop Cells Cancelled Ovalocytes Cancelled Stomatocytes Cancelled Barrett-Florien Bodies Cancelled Echinocytes Cancelled Acanthocytes (Spur) Cancelled Rouleaux Cancelled RBC Agglutinates Cancelled Schistocytes Cancelled Sezary Cell Cancelled Sodium 138 (136-145) mmol/L Potassium 3.8 (3.5-5.1) mmol/L Chloride 106 (98-107) mmol/L Carbon Dioxide 24 (21-32) mmol/L Anion Gap 8 (3-11) BUN 7 (6-23) mg/dl Creatinine 0.61 (0.6-1.2) mg/dl Est Cr Clr Drug Dosing 180.9 ml/min Est GFR ( Amer) 141.0 ml/min Est GFR (Non-Af Amer) 121.7 ml/min BUN/Creatinine Ratio 11.5 (10-20) Glucose 79 (70-99(Fasting)) mg/dl Uric Acid 4.7 (2.6-7.2) mg/dl Calcium 8.3 L (8.6-10.3) mg/dl Magnesium 1.9 (1.7-2.4) mg/dl Total Bilirubin 0.3 (0.2-1.0) mg/dl AST 15 (13-39) U/L ALT 15 (7-52) U/L Alkaline Phosphatase 72 (34-104) U/L Lactate Dehydrogenase 197 (86-244) U/L Troponin I High Sens 3.3 (0-14) pg/ml Total Protein 5.7 L (6.0-8.3) gm/dl Albumin 3.3 L (3.4-5.0) gm/dl Globulin 2.4 L (2.5-4.0) gm/dl Albumin/Globulin Ratio 1.4 (0.9-2) TSH 4.129 (0.300-4.500) uIu/ml Urine Color Yellow Urine Appearance Clear (Clear) Urine pH 6.5 (4.5-7.5) Ur Specific [place] 1.004 (1.000-1.030) Urine Protein Negative (Negative) Urine Glucose (UA) Negative (Negative) Urine Ketones Negative (Negative) Urine Blood 3+ H (Negative) Urine Nitrite Negative (Negative) Urine Bilirubin Negative (Negative) Urine Urobilinogen Negative (Negative) Ur Leukocyte Esterase 2+ H (Negative) Urine WBC (Auto) 11-20 H (0-5) /hpf Urine RBC (Auto) 0-2 (0-2) /hpf U Hyaline Cast (Auto) 0-2 (0-2) /lpf U Epithel Cells (Auto) 0-2 (0-2) /hpf Urine Bacteria (Auto) 1+ H (None Seen) Blood Parasites ID Cancelled Administered Medications Sodium Chloride (Nss) 1,000 mls @ 125 mls/hr IV .Q8H MARTY Stop: 04/18/24 12:59 Last Admin: 04/18/24 06:09 Dose: 125 mls/hr Documented By: HB Discontinued Medications Diphenhydramine HCl (Diphenhydramine 50 Mg/Ml Vial) 12.5 mg IV NOW STA Stop: 04/18/24 05:10 Last Admin: 04/18/24 05:41 Dose: 12.5 mg Documented By: HB Sodium Chloride (Nss) 500 mls @ 999 mls/hr IV .Q31M ONE Stop: 04/18/24 05:39 Last Infusion: 04/18/24 06:09 Dose: Infused Documented By: Admin: 04/18/24 05:42 Dose: 999 mls/hr Documented By: HB Prochlorperazine (Compazine) 1 mls @ 1 mls/min IV ONE ONE Stop: 04/18/24 05:10 Last Admin: 04/18/24 05:42 Dose: 1 mls/min Documented By: HB Magnesium Sulfate/Dextrose (Magnesium Sulfate / D5w) 1 gm in 100 mls @ 50 mls/hr IV ONE ONE Stop: 04/18/24 07:08 Last Infusion: 04/18/24 07:59 Dose: Infused Documented By: Admin: 04/18/24 06:01 Dose: 50 mls/hr Documented By: HB Ketorolac Tromethamine (Ketorolac Tromethamine 15 Mg/Ml Vial) 15 mg IV NOW ONE Stop: 04/18/24 05:10 Last Admin: 04/18/24 05:40 Dose: 15 mg Documented By: HB Imaging Data Radiologist's Impression: Chest X-Ray 04/18/24 04:53 XR chest 1V portable CLINICAL HISTORY: headache, htn, post COMPARISON STUDY: Chest radiograph October 18, 2021. FINDINGS: Lung volumes are mildly diminished. Lungs are clear. There is no pneumothorax or pleural effusion. There is mild enlargement of the cardiac silhouette. Mediastinal contours are normal. There is no evidence for pulmonary edema. IMPRESSION: 1. No acute cardiopulmonary findings. 2. Mild enlargement of the cardiac silhouette. This may be technical on this hypoventilatory study. ACT 112: Negative or not required by law. Electronically signed by: Javan Rosario M.D. 04/18/2024 6:[address] 04/18/24 04:53 CT head/brain wo con CLINICAL HISTORY: Headache Technique: Contiguous axial CT images of the head were acquired from the base of the skull to the vertex without intravenous contrast administration. Images were viewed in brain, subdural and bone windows. Automated dose lowering techniques and/or adjustment according to patient size were utilized for this exam. Comparison: Comparison is made to CT head 10/18/2021 Findings: The ventricles, basal cisterns, and cerebral sulci are normal. There is no acute intracranial hemorrhage or evidence of acute territorial infarction. Neither mass effect, shift of the midline structures, nor abnormal extra-axial fluid collections are shown. Imaged portions of the paranasal sinuses and mastoid air cells are clear. The orbits appear normal. There are no acute fractures of the calvaria or scalp swelling. Impression: No acute intracranial hemorrhage, no evidence of acute territorial infarction or other acute intracranial disease process. ACT 112: Negative or not required by law. Electronically signed by: Elbert Valdivia M.D. 04/18/2024 7:41 AM Discharge Plan Visit Data Chief Complaint: Headache Stated Complaint: REFERED BY OB - HEADACHE,SWELLING,PRESSURE ED Provider: Yeison Veloz Discharge Problem: Headache, hypertension Forms Stand Alone Forms: My [facility] Prescriptions Prescriptions: No Action cholecalciferol (vitamin D3) 50 mcg (2,000 unit) capsule 50 mcg PO DAILY Qty: 30 0RF One Daily 28-800-440 mg-mcg-mg combo pack See Protocol PO DAILY Protocol: Nursing Decision Medication Order Protocol Text: 1. Dispensed by Pharmacy (Requires a written order by the nurse, unless noted otherwise). Artificial Saliva Aerozoin [place] Cepacol Lozenges (in Automated Drug Distribution Machine) Eucerin Cream Lacrilube Lidocaine (Xylocaine) 2% Jelly for urinary catheter insertion) Miconazole (Desenex) Powder [place] Nasal [place] (or generic) 2. On PAR from Supply Distribution (no written order required) A&D Ointment Artificial Tears Biotene Oral [place] Desitin Ointment Dermoplast [place] Eucerin Lotion Hydrogen peroxide Lanolin Lip Savvy Tucks White Petrolatum Zinc Oxide albuterol 90 mcg/actuation Aerosol INHALATION Referrals Referrals: Riley Brice MD [Primary Care Provider] -
--- NOTE | 2024-04-18 06:52 | XRay Report ---
XR chest 1V portable CLINICAL HISTORY: headache, htn, post COMPARISON STUDY: Chest radiograph October 18, 2021. FINDINGS: Lung volumes are mildly diminished. Lungs are clear. There is no pneumothorax or pleural ef fusion. There is mild enlargement of the cardiac silhouette. Mediastinal contours are normal. There i s no evidence for pulmonary edema. IMPRESSION: 1. No acute cardiopulmonary findings. 2. Mild enlargement of the cardiac silhouette. This may be technical on this hypoventilatory study. ACT 112: Negative or not required by law. Electronically signed by: Javan Rosario M.D. 04/18/2024 6:50 AM
[2024-04-18 07:24] LABS: Basophils # (auto) 0.03 K/uL (0.00-0.20); Basophils % (auto) 0.4 %; Eosinophils # (auto) 0.14 K/uL (0.00-0.50); Eosinophils % (auto) 1.8 %; Hemoglobin 8.6 g/dl (12.0-16.0); Immature Granulocytes # (auto) 0.09 K/uL (0.01-0.20); Immature Granulocytes % (auto) 1.2 %; Lymphocytes # (auto) 1.91 K/uL (1.20-3.40); Lymphocytes % (auto) 24.9 %; Mean Corpuscular Hemoglobin 29.9 pg (25.0-34.0); Mean Corpuscular Hgb Conc 34.4 g/dL (32.0-36.0); Mean Corpuscular Volume 86.8 fL (80.0-100.0); Mean Platelet Volume 10.4 fL (9.4-12.4); Monocytes # (auto) 0.48 K/uL (0.11-0.59); Monocytes % (auto) 6.3 %; Neutrophils # (auto) 5.02 K/uL (1.40-6.50); Neutrophils % (auto) 65.4 %; Platelet Count 180 K/uL (130-400); RDW Coefficient of Variation 12.7 % (11.5-14.5); RDW Standard Deviation 39.8 fL (36.4-46.3); Red Blood Count 2.88 M/uL (4.20-5.40); White Blood Count 7.67 K/ul (4.8-10.8)
--- NOTE | 2024-04-18 07:43 | CT Scan Report ---
CT head/brain wo con CLINICAL HISTORY: Headache Technique: Contiguous axial CT images of the head were acquired from the base of the skull to the monica kayden without intravenous contrast administration. Images were viewed in brain, subdural and [facility]. Automated dose lowering techniques and/or adjustment according to patient size were utilized for this exam. Comparison: Comparison is made to CT head 10/18/2021 Findings: The ventricles, basal cisterns, and cerebral sulci are normal. There is no acute intracranial hemorrh age or evidence of acute territorial infarction. Neither mass effect, shift of the midline structures , nor abnormal extra-axial fluid collections are shown. Imaged portions of the paranasal sinuses and mastoid air cells are clear. The orbits appear normal. There are no acute fractures of the calvaria or scalp swelling. Impression: No acute intracranial hemorrhage, no evidence of acute territorial infarction or other acute intracra nial disease process. ACT 112: Negative or not required by law. Electronically signed by: Elbert Valdivia M.D. 04/18/2024 7:41 AM
[2024-04-18] MEDS: MAG SULFATE 4GM BOLUS FROM BAG IV ONE (08:22)
[2024-04-18] MEDS: MAGNESIUM SULFATE / WTR 40 GM/1,000 ML BAG IV SCH ×2 (08:22→11:40)
[2024-04-18] MEDS: LACTATED RINGER'S 1,000 ML IV SCH (11:40)
--- NOTE | 2024-04-18 11:56 | History & Physical Report ---
Date of Service April 18, 2024 Assessment & Plan (1) hypertension: (2) Headache: (3) UTI (urinary tract infection): Plan Pt is a 28 yo female who was recently discharged after at 39w2d on 04/13. Pt presented to the ED with c/o headache and found to have BP of 146/102. Pt received IV mag in ED. BP has stabilized since initial readings. UA is positive for UTI with indwelling Lockwood catheter. Continue magnesium IV drip Ordered Tylenol 650mg q6h for headache Start Keflex PO 500mg QID Admission and Anticipated Discharge Date Admission Date: April 18, 2024 History of Present Illness Chief Complaint: Headaches, swelling Primary Care Provider: Riley Brice MD Pt is a 28 yo female who was recently discharged after at 39w2d on 04/13. Pt presented to the ED with c/o headache and found to have BP of 146/102. Pt was given magnesium sulfate 4mg f/b and started on 1g in 100ml at 50mls/hr drip in ED. Pt reports she progressively worsening swelling in legs, hands, and face as well as headache. Pt states leg swelling has been present since delivering her baby, but has progressed to both hands and face 04/17 and this morning. Pt notes headache was mild and intermittent since delivery, which progressed to constant and throbbing starting 04/17. She reports pressure behind her eyes and sensitivity to light. Pt denies RUQ pain, vision changes, chest pain, SOB, or leg cramping. Pt endorses nausea and intermittent heart palpitations, dysuria Pt had UA at OB office on 04/17, unsure of results. Allergies Allergy/AdvReac Type Severity Reaction Status Date / Time house dust Allergy Intermediate dust Verified 04/13/24 03:17 induces asthma No Known Drug Allergies Allergy Unknown Diarrhea Verified 04/12/24 08:00 Home Medications Medication Instructions Recorded Confirmed Type vits 75-iron 28 mg-folic See Protocol PO DAILY 07/10/23 04/18/24 History acid 800 mcg-omega3 440 mg oral pack (One Daily ) cholecalciferol (vitamin D3) 50 50 mcg PO DAILY #30 caps 04/08/24 04/18/24 Rx mcg (2,000 unit) capsule albuterol 90 mcg/actuation aerosol 90 mcg inhalation DIRECTED PRN 04/13/24 04/18/24 History inhaler Other Patient History Medical History History of chicken pox Chronic tonsillitis Moderate persistent asthma Anxiety and depression Asthma Surgical History History of wisdom tooth extraction History of tonsillectomy Family History Grandmother (Maternal) Breast cancer Aunt Breast cancer Family/Other Breast cancer Father Heart disease Other Anxiety Depression Diabetes Denies family history of Ovarian cancer Prostate cancer Lung cancer Colorectal cancer Social History (Updated 04/12/24 @ 07:59 by Hellen Grant RN) Smoking Status: Never smoker Second Hand Exposure: No; Do You Dip or Chew Tobacco: No; Hx Alcohol Use: No Hx Substance Use: No Preferred Language: Persian Communication Ability: Effective Visual Impairment: Limited Hearing Ability: Normal Batch Analyst Required: No Beliefs That Will Affect Care: None marital status: marital status details: Nba Rojas (26) [phone] Current Living Situation: Spouse Current Living Situation Comment: lives with spouse, dog current occupational status: employed How many Children do You have: 0 Other Information That Helps Us Care for You: No other: [employer] Feels Safe at Home: Yes Safety Concerns: Feels Safe At This Time Childhood Exposure to Second-Hand Smoke: No Diet: regular caffeine: Yes (1 cup of coffee daily ) during the past year weight has: decreased > 10 lbs Dental Care, Regularly: Yes Physical Activity Frequency: 3-4 Times per Week Seatbelt Use: always Sunscreen Use: No Assistive Devices: None Review of Systems As per HPI Physical Exam Constitutional: WD/WN, vitals as above Respiratory: normal respiratory effort, lungs clear to auscultation Cardiovascular: RRR, no murmur, no edema Gastrointestinal (Abdomen): normal bowel sounds, soft, nontender, no hepatosplenomegaly Neurologic: patellar DTR's 2+ bilat, sensation intact and PERRL, EOMI, accommodation nl, no face palsy, no dysarthria Moving all four extremities on commands Genitourinary: Lockwood catheter in place Results & Data Vital Signs (Past 12 Hours) Vital Signs Temp Pulse Pulse Resp BP BP Pulse Ox 04/18/24 11:52 79 100 04/18/24 10:30 144/85 H 04/18/24 10:30 80 04/18/24 10:09 85 22 04/18/24 10:00 143/92 H 04/18/24 09:57 80 15 04/18/24 09:36 89 15 04/18/24 09:30 142/92 H 04/18/24 09:21 66 16 98 04/18/24 09:00 147/96 H 04/18/24 09:00 69 16 97 04/18/24 08:57 74 04/18/24 07:58 78 18 146/102 H 100 04/18/24 06:00 68 16 121/84 97 04/18/24 04:57 80 04/18/24 04:54 74 16 144/86 H 96 04/18/24 04:54 99 04/18/24 04:35 36.6 C 82 18 159/96 H 99 O2 Del Method 04/18/24 11:52 04/18/24 10:30 04/18/24 10:30 04/18/24 10:09 04/18/24 10:00 04/18/24 09:57 04/18/24 09:36 04/18/24 09:30 04/18/24 09:21 04/18/24 09:00 04/18/24 09:00 04/18/24 08:57 04/18/24 07:58 Room Air 04/18/24 06:00 Room Air 04/18/24 04:57 04/18/24 04:54 04/18/24 04:54 Room Air 04/18/24 04:35 Room Air Laboratory Results Abnormal lab results 04/18/24 04/18/24 04/18/24 Range/Units 05:25 05:30 07:11 RBC 2.88 L (4.20-5.40) M/uL Hgb 8.6 L (12.0-16.0) g/dl Hct 25.0 L (37.0-47.0) % Calcium 8.3 L (8.6-10.3) mg/dl Total Protein 5.7 L (6.0-8.3) gm/dl Albumin 3.3 L (3.4-5.0) gm/dl Globulin 2.4 L (2.5-4.0) gm/dl Urine Blood 3+ H (Negative) Ur Leukocyte Esterase 2+ H (Negative) Urine WBC (Auto) 11-20 H (0-5) /hpf Urine Bacteria (Auto) 1+ H (None Seen) 04/18/24 Range/Units 12:14 RBC 2.98 L (4.20-5.40) M/uL Hgb 8.8 L (12.0-16.0) g/dl Hct 26.0 L (37.0-47.0) % Calcium (8.6-10.3) mg/dl Total Protein (6.0-8.3) gm/dl Albumin (3.4-5.0) gm/dl Globulin (2.5-4.0) gm/dl Urine Blood (Negative) Ur Leukocyte Esterase (Negative) Urine WBC (Auto) (0-5) /hpf Urine Bacteria (Auto) (None Seen) Code Status & VTE Plan VTE Prophylaxis Plan VTE Prophylaxis will be ordered: No Supervising Physician Co-Signing Physician Notes Resident Physician Supervision Note: I interviewed and examined the patient. Discussed with Dr. Clark and agree with findings and plan as documented in the note. Any exceptions or clarifications are listed here: [id number] s/p who presents to the ED with severe castro and increased generalized swelling. Castro worse with sitting/standing, better lying flat. Labs all wnl. unfortunately had elevated blood pressures. Neg head ct. Given castro and blood pressures, fulfills criteria for pet with severe features and admitted for mag sulfate prophylaxis. Other vitals all stable. No hx of bp issues in the past. Pressures when admitted for delivery were relatively normal. A couple of days ago gave a urine in the office secondary to dysuria. Just came back with >100K GN. Will treat with po antibiotics given now has indwelling lockwood secondary to mag use. Other cunningham she is stable and no other s/s. She is breast feeding. Clear diet. Monitor i and o. Plan for 24 hours of Mag. Documented By: Sasha Figueroa MD, FACOG Resident Activity Tracking Resident Involvement: Resident Care Provided Care Provided: [facility]
[2024-04-18] MEDS ORDERED: LIDOCAINE 1% LOCAL 20 ML VIAL INFIL PRN (12:02)
[2024-04-18 12:28] LABS: Hemoglobin 8.8 g/dl (12.0-16.0); Mean Corpuscular Hemoglobin 29.5 pg (25.0-34.0); Mean Corpuscular Hgb Conc 33.8 g/dL (32.0-36.0); Mean Corpuscular Volume 87.2 fL (80.0-100.0); Mean Platelet Volume 10.2 fL (9.4-12.4); Platelet Count 196 K/uL (130-400); RDW Coefficient of Variation 12.8 % (11.5-14.5); RDW Standard Deviation 40.7 fL (36.4-46.3); Red Blood Count 2.98 M/uL (4.20-5.40); White Blood Count 7.81 K/ul (4.8-10.8)
--- NOTE | 2024-04-18 13:52 | Electrocardiogram Report ---
Test Reason : Blood Pressure : */* mmHG Vent. Rate : 75 BPM Atrial Rate : 75 BPM P-R Int : 152 ms QRS Dur : 82 ms QT Int : 380 ms P-R-T Axes : 46 31 13 degrees QTcB Int : 424 ms Normal sinus rhythm Normal ECG When compared with ECG of 18-Oct-2021 17:50, No significant change was found Confirmed by Mo Chairez ([id number]) on 04/18/2024 1:52:49 PM Referred By: Confirmed By: Mo Chairez
[2024-04-18] MEDS: ACETAMINOPHEN 325 MG TAB PO PRN (14:00)
[2024-04-18] MEDS ORDERED: Nursing to Pharmacy Communication SCH ×2 (14:00)
[2024-04-18] MEDS: ACETAMINOPHEN 325 MG TAB ONE (14:38)
[2024-04-18] MEDS: cephALEXin 500 MG CAP PO ONE (14:43)
--- NOTE | 2024-04-18 15:34 | Communication Note ---
Date of Service: April 18, 2024 asked to see pt about headache past couple days since delivery 5 days ago - patient admitted with elevated blood pressure today and is on Mg - feeling pretty well right now, resting in dark room - blood pressures good - she says the headache didn't start until 3 or 4 days after delivery - seemed a little worse with activity but never went away by lying down - spoke with her about post dural puncture headaches and treatment including blood patch - Her history is not typical for a spinal headache and she looks comfortable now so I recommended that while on bedrest and Mg and feeling ok that we wait and reevaluate - she is comfortable with this - tomorrow when she begins to get out of bed and become active if it worsens/returns we can decide on further action. In the mean time I recommended she drink caffeinated beverages if tolerated and use NSAID's.
[2024-04-18] MEDS: cephALEXin 500 MG CAP PO SCH (19:36)
[2024-04-18] MEDS: IBUPROFEN 200 MG TAB PO PRN (19:44)
[2024-04-19 08:09] VITALS: RESP 18; TEMP 98.4
--- NOTE | 2024-04-19 08:18 | Obstetrical Progress Note ---
Date of Service April 19, 2024 Assessment & Plan (1) UTI (urinary tract infection): (2) hypertension: Plan Doing well. castro improving. no s/s of worsening disease. excellent uop. plan d/c mag at 9am, feed and monitor blood pressures. Admission and Anticipated Discharge Date Admission Date: April 18, 2024 Subjective Patient is feeling much better. Notes she got some sleep and that has really helped. castro continues to improve, now rates a 2/10. no vision change, no ruq pain. Physical Exam Constitutional: WD/WN, vitals as above Cardiovascular: Extremities: + edema (+1); no calf tenderness Gastrointestinal (Abdomen): soft, nt, nd no ruq pain Neurologic: patellar DTR's 2+ bilat, sensation intact Results & Data Vital Signs (Past 12 Hours) Vital Signs Temp Pulse Resp BP Pulse Ox 04/19/24 08:12 68 99 04/19/24 08:07 78 99 04/19/24 08:02 75 100 04/19/24 08:00 36.9 C 75 18 100 04/19/24 08:00 16 04/19/24 07:57 79 100 04/19/24 07:52 73 100 04/19/24 07:47 72 100 04/19/24 07:46 71 127/71 04/19/24 07:42 74 100 04/19/24 07:37 73 99 04/19/24 07:32 70 100 04/19/24 07:29 78 93 04/19/24 07:27 83 100 04/19/24 07:22 78 100 04/19/24 07:17 72 100 04/19/24 07:12 65 100 04/19/24 07:07 56 L 99 04/19/24 07:02 70 97 04/19/24 06:57 59 L 100 04/19/24 06:52 61 98 04/19/24 06:47 57 L 99 04/19/24 06:46 62 116/64 04/19/24 06:42 58 L 97 04/19/24 06:37 54 L 98 04/19/24 06:32 57 L 99 04/19/24 06:31 16 04/19/24 06:27 62 99 04/19/24 06:22 56 L 97 04/19/24 06:17 57 L 99 04/19/24 06:12 57 L 99 04/19/24 06:07 58 L 100 04/19/24 06:02 64 100 04/19/24 05:57 61 100 04/19/24 05:52 61 99 04/19/24 05:47 63 99 04/19/24 05:46 61 124/75 04/19/24 05:42 90 99 04/19/24 05:37 65 100 04/19/24 05:32 69 100 04/19/24 05:27 63 100 04/19/24 05:22 65 100 04/19/24 05:17 60 99 04/19/24 05:13 67 93 04/19/24 05:12 81 100 04/19/24 05:07 88 99 04/19/24 05:02 73 98 04/19/24 05:00 16 04/19/24 04:57 71 98 04/19/24 04:52 73 99 04/19/24 04:47 73 99 04/19/24 04:46 69 127/78 04/19/24 04:42 73 100 04/19/24 04:37 71 100 04/19/24 04:32 78 100 04/19/24 04:27 68 98 04/19/24 04:22 59 L 99 04/19/24 04:17 74 99 04/19/24 04:12 67 100 04/19/24 04:07 67 99 04/19/24 04:02 69 100 04/19/24 03:57 73 99 04/19/24 03:52 78 100 04/19/24 03:50 97 H 92 04/19/24 03:47 56 L 100 04/19/24 03:46 54 L 121/77 04/19/24 03:43 16 04/19/24 03:42 58 L 100 04/19/24 03:37 91 H 98 04/19/24 03:32 56 L 99 04/19/24 03:27 53 L 100 04/19/24 03:22 55 L 99 04/19/24 03:17 55 L 99 04/19/24 03:12 54 L 99 04/19/24 03:07 55 L 99 04/19/24 03:02 55 L 99 04/19/24 02:57 62 99 04/19/24 02:56 36.7 C 04/19/24 02:56 16 04/19/24 02:56 84 92 04/19/24 02:52 83 99 04/19/24 02:47 83 99 04/19/24 02:46 77 04/19/24 02:46 73 122/70 94 04/19/24 02:42 59 L 96 04/19/24 02:37 58 L 98 04/19/24 02:32 60 97 04/19/24 02:27 57 L 97 04/19/24 02:22 57 L 96 04/19/24 02:17 58 L 97 04/19/24 02:12 54 L 98 04/19/24 02:07 61 98 04/19/24 02:02 59 L 96 04/19/24 02:00 16 04/19/24 02:00 76 94 04/19/24 01:57 60 100 04/19/24 01:52 58 L 99 04/19/24 01:47 62 99 04/19/24 01:46 63 130/77 04/19/24 01:42 68 99 04/19/24 01:37 58 L 99 04/19/24 01:32 68 100 04/19/24 01:27 100 04/19/24 01:27 72 04/19/24 01:27 69 93 04/19/24 01:22 77 100 04/19/24 01:17 67 99 04/19/24 01:12 65 100 04/19/24 01:07 69 100 04/19/24 01:02 66 100 04/19/24 00:57 67 100 04/19/24 00:52 79 100 04/19/24 00:47 16 04/19/24 00:47 87 95 04/19/24 00:42 65 114/61 98 04/19/24 00:38 58 L 94 04/19/24 00:37 63 94 04/19/24 00:32 69 99 04/19/24 00:27 59 L 99 04/19/24 00:22 62 97 04/19/24 00:17 61 98 04/19/24 00:12 61 105/56 L 96 04/19/24 00:07 63 97 04/19/24 00:02 62 96 04/19/24 00:00 16 04/18/24 23:57 61 95 04/18/24 23:52 60 97 09/13/24 23:47 62 96 04/18/24 23:42 99 04/18/24 23:42 67 04/18/24 23:42 70 124/68 04/18/24 23:37 99 04/18/24 23:37 78 04/18/24 23:37 71 93 04/18/24 23:32 67 97 04/18/24 23:27 71 96 04/18/24 23:22 62 98 04/18/24 23:17 63 96 04/18/24 23:12 97 04/18/24 23:12 60 04/18/24 23:12 60 109/63 04/18/24 23:07 60 97 04/18/24 23:02 58 L 98 04/18/24 22:57 58 L 97 04/18/24 22:52 59 L 99 04/18/24 22:47 65 100 04/18/24 22:45 36.8 C 04/18/24 22:45 18 04/18/24 22:42 100 04/18/24 22:42 68 04/18/24 22:42 67 124/73 04/18/24 22:39 20 04/18/24 22:37 58 L 100 04/18/24 22:32 68 99 04/18/24 22:27 69 100 04/18/24 22:22 67 100 04/18/24 22:17 73 100 04/18/24 22:12 100 04/18/24 22:12 69 04/18/24 22:12 72 145/80 H 04/18/24 22:07 74 100 04/18/24 22:02 74 100 04/18/24 21:57 74 99 04/18/24 21:52 75 100 04/18/24 21:47 86 100 04/18/24 21:42 69 136/79 100 04/18/24 21:40 18 04/18/24 21:37 75 100 04/18/24 21:32 71 100 04/18/24 21:27 74 100 04/18/24 21:22 73 100 04/18/24 21:17 69 100 04/18/24 21:12 72 125/72 100 04/18/24 21:07 71 100 04/18/24 21:02 72 100 04/18/24 20:57 74 100 04/18/24 20:52 77 04/18/24 20:47 81 04/18/24 20:42 75 125/78 04/18/24 20:40 18 04/18/24 20:37 80 04/18/24 20:32 72 04/18/24 20:27 36.6 C 76 20 04/18/24 20:22 82 04/18/24 20:17 70 100 PG Care Time/CCT Total # of Minutes Spent Total Time Spent with Patient: Total time spent is greater than 50% in coordination of care (as documented) at patient's floor/unit and/or counseling patient: Coding Level of Care Code 08137 SUB INP/OBS CARE 08/30MIN Diagnoses UTI (urinary tract infection) N39.0 hypertension O16.5
[2024-04-19] MEDS ORDERED: BENZOCAINE 20% SPRY 85 APPLN/85 GM CAN EXT PRN (08:36)
[2024-04-19] MEDS ORDERED: IBUPROFEN 600 MG TAB PO PRN (08:36)
[2024-04-19] MEDS ORDERED: bisacodyL 10 MG SUPP PR PRN (08:36)
[2024-04-19] MEDS ORDERED: ACETAMINOPHEN 325 MG TAB PO PRN (08:36)
[2024-04-19] MEDS ORDERED: OXYTOCIN 30 UNITS/NSS 30 UNITS/500 ML BAG IV PRN (08:36)
[2024-04-19] MEDS ORDERED: HYDROCORTISONE ACETATE 25 MG SUPP PR PRN (08:36)
[2024-04-19] MEDS ORDERED: ALBUTEROL HFA 8 GM INHALER INH PRN (08:53)
[2024-04-19 09:03] VITALS: O2SAT 98
[2024-04-19] MEDS ORDERED: DOCUSATE SODIUM 100 MG CAP PO ONE (09:10)
[2024-04-19] MEDS: DOCUSATE SODIUM 100 MG CAP PO SCH (09:11)
--- NOTE | 2024-04-19 10:17 | Communication Note ---
Date of Service: April 19, 2024 Pt sitting upright in bed. States headache improved. No positional related component present. Does not appear to be spinal headache therefore epidural blood patch not indicated. All questions answered.
[2024-04-19 14:15] VITALS: BP 125/82
[2024-04-19 14:20] VITALS: PULSE 76
[2024-04-20] MEDS ORDERED: PRENATAL VITAMIN 1 TAB PO SCH (08:00)
[2024-04-20] MEDS ORDERED: bisacodyL 5 MG TABEC PO SCH (20:00)
--- NOTE | 2024-04-21 13:20 | Discharge Summary ---
Date of Service April 21, 2024 Admission HPI Per Admitting Provider Pt is a 28 yo female who was recently discharged after at 39w2d on 04/13. Pt presented to the ED with c/o headache and found to have BP of 146/102. Pt was given magnesium sulfate 4mg f/b and started on 1g in 100ml at 50mls/hr drip in ED. Pt reports she progressively worsening swelling in legs, hands, and face as well as headache. Pt states leg swelling has been present since delivering her baby, but has progressed to both hands and face 04/17 and this morning. Pt notes headache was mild and intermittent since delivery, which progressed to constant and throbbing starting 04/17. She reports pressure behind her eyes and sensitivity to light. Pt denies RUQ pain, vision changes, chest pain, SOB, or leg cramping. Pt endorses nausea and intermittent heart palpitations, dysuria Pt had UA at OB office on 04/17, unsure of results. Discharge Data Consultations 04/18/24 11:23 ED Decision to Admit Stat 04/18/24 12:08 Consult Anesthesiology Routine Hospital Course (1) hypertension: Given elevated blood pressures and headache, the patient was admitted for presumed preeclampsia and pp magnesium sulfate prophylaxis. She received Mag for 24 hours. She had excellent UOP. Her headache significantly improved. Her lab evaluation was all normal. Her pressures resolved with Mag. She was diagnosed with UTI on a sample given in the office prior to d/c and was given po antibiotics in hospital and a course to complete at home. She was d/c later the afternoon of HD#2. Precautions were reviewed and she will have close f/u in the office. The patient was evaluated by anesthesia because of concern some of headache might be related to a potential spinal castro and this was ruled out. Coding Level of Care Code 01566 IN/OBS DISCH 30 MIN/LESS Diagnoses hypertension O16.5
== END 2024-04-19 14:50 | disposition home or self-care (01) | DRG 776 ==
LOC: ED 04:31 → 4S1 10:57